=== PATIENT | male | born 1945 | race Caucasian/White ===

== ENCOUNTER 2017-09-27 13:16 | Emergency (ER) | payer OTHER, MEDICARE ==
[~2017-09-27] VITALS: Ht 180.3 cm; Wt 138.9 kg
[2017-09-27 14:23] LABS: HEMATOCRIT 41.7 % (38.0-50.0); HEMOGLOBIN 14.2 G/DL (12.5-16.6); MCH 28.8 PG (29.0-34.0); MCHC 34.1 G/DL (30.0-36.0); MCV 84.6 FL (86-99); PLATELET COUNT 674 K/uL (156-360); RBC DIS.WIDTH-CV 15.1 % (11.8-14.6); RBC DIS.WIDTH-SD 46.2 % (39-53); RED BLOOD COUNT 4.93 M/uL (4.00-5.50); WHITE BLOOD COUNT 8.6 K/uL (4.1-10.2)
[2017-09-27 14:37] LABS: CHLORIDE 106 mEq/L (99-109); POTASSIUM 3.7 mEq/L (3.7-5.4); SODIUM 140 mEq/L (136-147)
[2017-09-27 14:38] LABS: GLUCOSE 92 mg/dL (70-99)
[2017-09-27 14:42] LABS: CREATININE 0.8 mg/dL (0.6-1.3); GFR ESTIMATE (CALCULATED) > 59 mL/min/ (58.99-99999)
[2017-09-27 14:43] LABS: UREA NITROGEN (BUN) 12 mg/dL (9-23)
[2017-09-27 14:44] LABS: TROP-I INTERPRETATION NEGATIVE; TROPONIN-I < 0.01 ng/mL (0.0-0.30)
[2017-09-27] MEDS ORDERED: LOPRESSOR50 MG PO (16:29)
[2017-09-27 18:11] VITALS: BP 139/90
== END 2017-09-27 18:17 | disposition home or self-care (01) ==
LOC: EME 13:16
PROVIDERS: Emergency Medicine Emergency Medical Services
DX: I48.92 Unspecified atrial flutter (principal); R07.9 Chest pain, unspecified; R06.02 Shortness of breath
CPT/HCPCS: 80048; 84484; 85027; 93005; 99281; 99285

== ENCOUNTER 2018-01-23 15:49 | Inpatient (IN) | payer OTHER, MEDICARE ==
[~2018-01-23] VITALS: Ht 182.9 cm; Wt 137.1 kg
[~2018-01-23 15:49] MED LIST: LOPRESSOR50 MG PO
[2018-01-23 16:28] LABS: HEMATOCRIT 45.4 % (38.0-50.0); HEMOGLOBIN 15.4 G/DL (12.5-16.6); MCH 28.5 PG (29.0-34.0); MCHC 33.9 G/DL (30.0-36.0); MCV 84.1 FL (86-99); PLATELET COUNT 854 K/uL (156-360); RBC DIS.WIDTH-CV 15.7 % (11.8-14.6); RBC DIS.WIDTH-SD 47.8 % (39-53); WHITE BLOOD COUNT 11.1 K/uL (4.1-10.2)
[2018-01-23 16:38] LABS: CHLORIDE 103 mEq/L (99-109); SODIUM 139 mEq/L (136-147)
[2018-01-23 16:40] LABS: GLUCOSE 104 mg/dL (70-99)
[2018-01-23 16:43] LABS: CREATININE 0.9 mg/dL (0.6-1.3); GFR ESTIMATE (CALCULATED) > 59 mL/min/ (58.99-99999)
[2018-01-23 16:44] LABS: UREA NITROGEN (BUN) 20 mg/dL (9-23)
[2018-01-23 16:48] LABS: TROP-I INTERPRETATION NEGATIVE; TROPONIN-I 0.02 ng/mL (0.0-0.30)
[2018-01-23 19:31] LABS: PHOSPHORUS 3.6 mg/dL (2.5-4.9)
[2018-01-23] MEDS ORDERED: LOPRESSOR50 MG PO (21:59)
[2018-01-23] MEDS ORDERED: ASPIRIN325 MG PO (22:00)
[2018-01-23] MEDS ORDERED: CYANOCOBALAM1000 MCG PO (22:01)
[2018-01-23] MEDS ORDERED: CENTRUM SILVER1 EAC3 PO (22:02)
[2018-01-23] MEDS ORDERED: FIBERCON625 MG PO (22:03)
[2018-01-23] MEDS ORDERED: FOLIC ACID0.4 MG PO (22:07)
[2018-01-23] MEDS ORDERED: NORCO 5/3251 TABLET PO (22:11)
[2018-01-23] MEDS ORDERED: VITAMIN D31000 UNI2 PO (22:11)
[2018-01-23] MEDS ORDERED: ZOFRAN4 MG PO (22:12)
[2018-01-23] MEDS ORDERED: LEVOTHYROXINE50 MCG PO (22:13)
[2018-01-23] MEDS ORDERED: PRAVASTATIN SOD20 MG PO (22:13)
[2018-01-23] MEDS ORDERED: FUROSEMIDE20 MG PO (22:14)
[2018-01-23] MEDS ORDERED: XARELTO20 MG PO (22:15)
[2018-01-23] MEDS ORDERED: VESICARE5 MG PO (22:16)
[2018-01-23] MEDS ORDERED: AMOXICILLIN500 MG PO (22:19)
[2018-01-23 22:29] LABS: ALBUMIN 3.8 g/dL (3.2-4.8)
[2018-01-23 22:32] LABS: TOTAL PROTEIN 6.7 g/dL (6.4-8.3)
[2018-01-23 22:34] LABS: TOTAL BILIRUBIN 0.4 mg/dL (0.0-1.0)
[2018-01-23 22:35] LABS: ALKALINE PHOSPHATASE 122 IU/L (3-129)
[2018-01-23 22:37] LABS: AST (GOT) 46 IU/L (2-34)
[2018-01-23 22:38] LABS: ALT (GPT) 73 IU/L (3-49); DIRECT BILIRUBIN 0.2 mg/dL (0.0-0.3)
[2018-01-23 22:43] LABS: INTER. NORMALIZED RATIO 1.4
[2018-01-24 00:55] VITALS: BP 98/71
[2018-01-24 05:18] LABS: HEMATOCRIT 42.5 % (38.0-50.0); HEMOGLOBIN 13.9 G/DL (12.5-16.6); MCH 27.7 PG (29.0-34.0); MCHC 32.7 G/DL (30.0-36.0); MCV 84.8 FL (86-99); PLATELET COUNT 743 K/uL (156-360); RBC DIS.WIDTH-CV 15.9 % (11.8-14.6); RBC DIS.WIDTH-SD 48.9 % (39-53); RED BLOOD COUNT 5.01 M/uL (4.00-5.50); WHITE BLOOD COUNT 9.8 K/uL (4.1-10.2)
[2018-01-24 05:34] LABS: TROP-I INTERPRETATION NEGATIVE; TROPONIN-I < 0.01 ng/mL (0.0-0.30)
[2018-01-24 05:40] VITALS: BP 119/76
[2018-01-24 07:12] VITALS: BP 97/59
[2018-01-24 11:27] LABS: APPEARANCE CLEAR ((CLEAR)); BILIRUBIN NEGATIVE; BLOOD NEGATIVE; COLOR YELLOW ((YELLOW)); GLUCOSE (STRIP) NEGATIVE; KETONES NEGATIVE; LEUKOCYTES NEGATIVE; NITRITE NEGATIVE; PROTEIN (STRIP) NEGATIVE; SPECIFIC GRAVITY 1.013 (1.000-1.030); UCUL ADDED? NO; UROBILINOGEN 0.2 MG/DL (0.2-1.0)
[2018-01-24 11:30] VITALS: BP 111/64
[2018-01-24 19:30] VITALS: BP 112/63
[2018-01-25 00:40] VITALS: BP 117/75
[2018-01-25 04:05] VITALS: BP 115/61
[2018-01-25 04:56] LABS: BASOPHIL (%) 0.3 % (0-1); EOSINOPHIL (%) 0.2 % (0-5); HEMATOCRIT 45.2 % (38.0-50.0); HEMOGLOBIN 15.2 G/DL (12.5-16.6); IMMATURE GRANULOCYTE (%) 0.7 % (0.0-0.7); LYMPHOCYTE (%) 12.3 % (15-42); LYMPHOCYTE COUNT 1.6 K/uL (1.0-2.8); MCH 28.5 PG (29.0-34.0); MCHC 33.6 G/DL (30.0-36.0); MCV 84.6 FL (86-99); MONOCYTE (%) 4.4 % (3-12); MONOCYTE COUNT 0.6 K/uL (0-0.8); NEUTROPHIL (%) 82.1 % (45-76); NEUTROPHIL COUNT 10.6 K/uL (1.8-6.4); PLATELET COUNT 922 K/uL (156-360); RBC DIS.WIDTH-CV 15.7 % (11.8-14.6); RBC DIS.WIDTH-SD 47.5 % (39-53); RED BLOOD COUNT 5.34 M/uL (4.00-5.50); WHITE BLOOD COUNT 12.9 K/uL (4.1-10.2)
[2018-01-25 05:05] LABS: ALBUMIN 3.7 g/dL (3.2-4.8); CHLORIDE 104 mEq/L (99-109); POTASSIUM 4.4 mEq/L (3.7-5.4); SODIUM 137 mEq/L (136-147)
[2018-01-25 05:07] LABS: GLUCOSE 125 mg/dL (70-99)
[2018-01-25 05:08] LABS: TOTAL PROTEIN 6.9 g/dL (6.4-8.3)
[2018-01-25 05:11] LABS: ALKALINE PHOSPHATASE 122 IU/L (3-129); CREATININE 0.9 mg/dL (0.6-1.3); GFR ESTIMATE (CALCULATED) > 59 mL/min/ (58.99-99999)
[2018-01-25 05:12] LABS: UREA NITROGEN (BUN) 16 mg/dL (9-23)
[2018-01-25 05:13] LABS: AST (GOT) 41 IU/L (2-34)
[2018-01-25 05:14] LABS: ALT (GPT) 75 IU/L (3-49); TOTAL BILIRUBIN 0.6 mg/dL (0.0-1.0)
[2018-01-25 08:00] VITALS: BP 92/54
[2018-01-25 10:48] LABS: URINE TOTAL PROTEIN 5 MG/DL (0-10)
[2018-01-25 11:26] VITALS: BP 108/60
[2018-01-25 11:48] LABS: A/G RATIO 1.5 (1.1-1.8); ALBUMIN 3.9 G/DL (3.4-5.0); GLOBULINS 2.6 G/DL (2.3-3.5); TOTAL PROTEIN 6.5 G/DL (6.4-8.2)
[2018-01-25 13:41] VITALS: BP 104/58
[2018-01-25] MEDS ORDERED: DIGOXIN250 MCG PO (15:39)
[2018-01-25 15:53] VITALS: BP 121/62
[2018-01-25 18:22] LABS: IRON 123 MCG/DL (35-150); TRANSFERRIN (TIBC) 250.3 mg/dL (215-380); TRANSFERRIN SATUR. 49 % (20-55)
[2018-01-25 18:37] LABS: FERRITIN 105 NG/ML (22-322)
[2018-01-25 18:43] LABS: FOLIC ACID (FOLATE) > 22.0 NG/ML (5.0-22.0)
[2018-01-28 13:44] LABS: ALBUMIN 3.71 G/DL (3.6-4.9); ALPHA-1 GLOBULIN 0.28 G/DL (0.15-0.40); ALPHA-2 GLOBULIN 0.66 G/DL (0.45-0.85); BETA-GLOBULIN 0.75 G/DL (0.65-1.15)
[2018-01-29 19:26] LABS: JAK2 Mutation Result DETECTED (())
== END 2018-01-25 18:40 | disposition home or self-care (01) | DRG 308 ==
LOC: EME 15:49 → EDOF 22:52 → 4EAST 22:52 → ENRESERV 23:00 → 4EAST 01-24 00:44
PROVIDERS: Emergency Medicine; Hospitalist; Internal Medicine Medical Oncology; Physician Assistant Medical
PROC: 5A09357 Assistance with Respiratory Ventilation, Less than 24 Consecutive Hours, Continuous Positive Airway Pressure (ICD-10-PCS; 2018-01-24)
PROC: 5A2204Z Restoration of Cardiac Rhythm, Single (ICD-10-PCS; principal; 2018-01-25)
DX: I48.92 Unspecified atrial flutter (principal); I48.0 Paroxysmal atrial fibrillation; I44.1 Atrioventricular block, second degree; I95.9 Hypotension, unspecified; I50.23 Acute on chronic systolic (congestive) heart failure; E78.5 Hyperlipidemia, unspecified; K21.9 Gastro-esophageal reflux disease without esophagitis; G47.33 Obstructive sleep apnea (adult) (pediatric); G20 Parkinson's disease; G62.9 Polyneuropathy, unspecified; N40.1 Benign prostatic hyperplasia with lower urinary tract symptoms; N39.498 Other specified urinary incontinence; K76.0 Fatty (change of) liver, not elsewhere classified; D47.3 Essential (hemorrhagic) thrombocythemia; M54.9 Dorsalgia, unspecified; E66.01 Morbid (severe) obesity due to excess calories; Z96.652 Presence of left artificial knee joint; Z79.82 Long term (current) use of aspirin; Z88.2 Allergy status to sulfonamides; Z88.1 Allergy status to other antibiotic agents; Z79.01 Long term (current) use of anticoagulants; Z85.850 Personal history of malignant neoplasm of thyroid; Z98.1 Arthrodesis status; Z68.41 Body mass index [BMI] 40.0-44.9, adult
CPT/HCPCS: 71046; 71275; 76705; 80048; 80053; 80076; 81003; 81270 90; 82533 91; 82607; 82728; 82746; 82948; 83540; 83735; 83880; 84100; 84165; 84166; 84466; 84484; 85025; 85027; 85379; 85610; 93005; 93306; 93970; 94660; 99281; 99284; J1100; J1160; J7030